=== PATIENT | female | born 1990 | race Two or more races ===

== ENCOUNTER 2020-10-06 17:15 | Observation (INO) | payer SELFPAY ==
[~2020-10-06] VITALS: Ht 67 cm; Wt 98.9 kg
[2020-10-06] MEDS ORDERED: TERBUTALINE SULFATE 1 MG/ML 1ML VIAL SC ONE (17:52)
[2020-10-06] MEDS ORDERED: TERBUTALINE SULFATE 1 MG/ML 1ML VIAL SC SCH (18:00)
[2020-10-06] MEDS ORDERED: PREN-129 OR (20:20)
== END 2020-10-06 20:25 | disposition home or self-care (01) ==
LOC: LDRP 17:15
PROVIDERS: ADMIT Obstetrics & Gynecology; ATTEND Obstetrics & Gynecology
DX: O62.9 Abnormality of forces of labor, unspecified (principal); Z3A.32 32 weeks gestation of pregnancy
CPT/HCPCS: 59025; 81002; 96372; G0378; J3105